=== PATIENT | male | born 1955 | race Caucasian/White ===

== ENCOUNTER → 2020-05-07 06:47 | Outpatient (CLI) | payer OTHER, SELFPAY ==
[2020-05-07 07:26] LABS: BUN Creatinine Ratio 16.9 (6-22); Blood Urea Nitrogen 15 mg/dL (9-20); Calcium 9.5 mg/dL (8.4-10.2); Carbon Dioxide 32 mmol/L (22-32); Chloride 103 mmol/L (98-107); Estimated Glomerular Filt Rate > 60.0 mL/min (>60); Glucose 99 mg/dL (80-110); HEMOLYSIS < 15 (0-50); Potassium 4.4 mmol/L (3.4-5.1); Sodium 139 mmol/L (137-145)
--- NOTE | 2020-05-07 08:52 | DI.CT.S_ITS ---
PROCEDURE: CT ABDOMEN PELVIS W CON INDICATIONS: ABDOMINAL PAIN, RIGHT UPPER QUADRANT TECHNIQUE: After the administration of oral and intravenous contrast, 5 mm thick sections acquired from the diaphragms to the symphysis. 5 mm thick coronal and sagittal reformats were performed. For radiation dose reduction, the following was used: automated exposure control, adjustment of mA and/or kV according to patient size. COMPARISON: None. FINDINGS: Image quality: Excellent. ABDOMEN: Lung bases: Lung bases are clear. Heart size is normal. Small hiatal hernia. Solid organs: Liver is normal in size. A few well-circumscribed hepatic hypodensities which have the appearance of benign cyst or hemangioma. The subtle area of contrast enhancement in the right posterior dome of the liver is most likely a perfusion abnormality. Gallbladder is not significantly distended. No calcified gallstones. No pericholecystic fluid demonstrated. Biliary system is non-dilated. Pancreas enhances normally. Spleen is normal in size and enhancement. No adrenal nodules. Kidneys are normal in size and enhancement, without hydronephrosis. Small simple cyst in the mid left kidney. Punctate nonobstructing left kidney stone, (4/34). Peritoneum and bowel: Stomach, small bowel, and colon loops are normal in caliber and wall thickness. No free fluid or air. The appendix is partially visualized and is normal in caliber. A few colonic diverticuli. Prominent stool in the colon. Nodes and vessels: No retroperitoneal or mesenteric adenopathy. Aorta and inferior vena cava are normal in caliber. Miscellaneous: No ventral hernias. PELVIS: Genitourinary: Bladder is unremarkable. Prostatomegaly. Miscellaneous: No inguinal hernias or adenopathy. Bones: No suspicious bony lesions. DDD most pronounced at L4-L5. No vertebral body compression fractures. IMPRESSION: 1. No acute inflammatory process identified. No free fluid. -if clinically indicated consider further evaluation of the right upper quadrant with ultrasound. 2. Small hiatal hernia. 3. Prostatomegaly. 4. Punctate nonobstructing left kidney stone. No hydronephrosis. 5. Prominent stool in the colon could be due to constipation. Dictated by: Emiliano Doe M.D. on 05/07/2020 at 9:30 Approved by: Emiliano Doe M.D. on 05/07/2020 at 9:37
== END ==
PROVIDERS: Referring Provider Family Medicine; Visit Provider Family Medicine
DX: R10.11 Right upper quadrant pain (principal); N40.0 Benign prostatic hyperplasia without lower urinary tract symptoms; K44.9 Diaphragmatic hernia without obstruction or gangrene; N20.0 Calculus of kidney
CPT/HCPCS: 36415; 74177; 80048; Q9967

== ENCOUNTER → 2023-02-25 08:06 | Outpatient (CLI) | payer OTHER, SELFPAY ==
--- NOTE | 2023-02-25 08:07 | DI.US.S_ITS ---
PROCEDURE: US CAROTID DOPPLER BI INDICATIONS: PLAQUE TECHNIQUE: Color and pulse Doppler interrogation was performed of both carotid systems, with image documentation and velocity measurements. COMPARISON: None. FINDINGS: Stenosis calculations are based on SRU (Society of Radiologists in Ultrasound) criteria. Right side: Brachial blood pressure: 112/72 mm Hg. Common carotid artery peak systolic velocity: 78.7 cm/sec. Internal carotid artery peak systolic velocity: 81.7 cm/sec. Internal carotid artery end diastolic velocity: 30.3 cm/sec. External carotid artery peak systolic velocity: 62.4 cm/sec. ICA/CCA peak systolic ratio: 1.04 Medina scale imaging description: Atheromatous plaque is present at the carotid bifurcation. Percent internal carotid artery stenosis: Less than 50% stenosis. Vertebral artery: Flow direction is antegrade. Left side: Brachial blood pressure: 116/76 mm Hg. Common carotid artery peak systolic velocity: 77.3 cm/sec. Internal carotid artery peak systolic velocity: 76.4 cm/sec. Internal carotid artery end diastolic velocity: 33.1 cm/sec. External carotid artery peak systolic velocity: 54.0 cm/sec. ICA/CCA peak systolic ratio: 1.0 . Medina scale imaging description: Atheromatous plaque is present at the carotid bifurcation. Percent internal carotid artery stenosis: Less than 50% stenosis. Vertebral artery: Flow direction is antegrade. IMPRESSION: Less than 50% stenosis of the bilateral internal carotid arteries. Dictated by: Sushila Mina M.D. on 02/25/2023 at 11:15 Approved by: Sushila Mina M.D. on 02/25/2023 at 11:17
[2023-02-25 09:35] LABS: Add Manual Diff / Slide Review NO; Basophils Absolute Auto 0 /uL (0-100); Basophils Percent Auto 0.8 % (0-2); Eosinophils Absolute Auto 100 /uL (0-450); Eosinophils Percent Auto 1.3 % (2-4); Hematocrit 44.5 % (41-53); Hemoglobin 15.1 g/dL (13.5-17.5); Lymphocytes Absolute Auto 1400 /uL (1100-4500); Lymphocytes Percent Auto 26.9 % (25-40); Mean Corpuscular Hemoglobin 31.7 PG (26-34); Mean Corpuscular Volume 93.1 fL (80-100); Monocytes Absolute Auto 600 /uL (0-900); Monocytes Percent Auto 10.7 % (3-14); Neutrophils Absolute Auto 3200 /uL (1500-7000); Neutrophils Percent Auto 60.3 % (50-75); Platelet Count 191 X10^3/uL (150-400); Red Blood Cell Count 4.78 X10^6/uL (4.5-5.9); Red Cell Distribution Width 13.1 % (11.6-14.8); White Blood Cell Count 5.4 X10^3/uL (4.5-11.0)
[2023-02-25 09:43] LABS: Appearance Urine UA CLEAR; Bilirubin Urine UA NEGATIVE (NEGATIVE); Color Urine UA YELLOW; Glucose Urine UA NEGATIVE (Negative); Ketones Urine UA NEGATIVE (NEGATIVE); Leukocyte Esterase Urine UA NEGATIVE (NEGATIVE); Nitrite Urine UA NEGATIVE (Negative); Occult Blood Urine UA NEGATIVE (Negative); Protein Urine UA NEGATIVE (Negative); Specific Gravity Urine UA 1.015 (1.000-1.035)
[2023-02-25 09:57] LABS: Bacteria Urine Occasional (0-1); RBC Urine None Seen (0-5/HPF); Squamous Epithelial Cell Urine 0-1 /HPF (0-5/HPF); WBC Urine None Seen (0-5/HPF)
[2023-02-25 09:58] LABS: Culture Indicated Urine Cult Not Indicated
[2023-02-25 10:01] LABS: Alanine Aminotransferase 18 IU/L (<50); Albumin 4.1 g/dL (3.5-5.0); Albumin Globulin Ratio 1.3 (1.0-2.8); Alkaline Phosphatase 68 U/L (38-126); Aspartate Aminotransferase 22 IU/L (17-59); BUN Creatinine Ratio 19.7 (6-22); Bilirubin Total 0.9 mg/dL (0.2-1.3); Blood Urea Nitrogen 15 mg/dL (9-20); Calcium 9.1 mg/dL (8.4-10.2); Carbon Dioxide 30 mmol/L (22-32); Chloride 105 mmol/L (98-107); Cholesterol 189 mg/dL (140-199); Estimated Glomerular Filt Rate > 60 mL/min (>60); Globulin 3.1 g/dL (1.7-4.1); Glucose 86 mg/dL (80-110); HDL Cholesterol 58 mg/dL (40-60); LDL Cholesterol Calculated 111 mg/dL (<100); Potassium 4.2 mmol/L (3.4-5.1); Sodium 139 mmol/L (137-145); Total Protein 7.2 g/dL (6.3-8.2); Triglycerides 100 mg/dL (35-150)
[2023-02-25 10:13] LABS: HEMOLYSIS 17 (0-50); High Sensitivity CRP - Cardiac 1.5 mg/L (1.0-3.0)
[2023-02-25 10:17] LABS: Vitamin D 25 Hydroxy (D3) 31.9 ng/mL (30.0-100.0)
[2023-02-25 10:30] LABS: TSH w/ Reflex to FT4 3.07 uIU/mL (0.47-4.68)
== END ==
PROVIDERS: PCP Pediatrics; Referring Provider Pediatrics; Visit Provider Pediatrics
DX: I65.23 Occlusion and stenosis of bilateral carotid arteries (principal); Z11.59 Encounter for screening for other viral diseases; Z12.5 Encounter for screening for malignant neoplasm of prostate; E78.00 Pure hypercholesterolemia, unspecified; L64.9 Androgenic alopecia, unspecified; E55.9 Vitamin D deficiency, unspecified; R68.89 Other general symptoms and signs; L82.1 Other seborrheic keratosis; L57.0 Actinic keratosis; Z80.42 Family history of malignant neoplasm of prostate
CPT/HCPCS: 36415; 80053; 80061; 81001; 82306; 84443; 85025; 86140; 93880; G0103

== ENCOUNTER 2023-05-25 13:06 | Day surgery (SDC) | payer OTHER, SELFPAY ==
--- NOTE | 2023-05-25 | PATH_ITS ---
[facility] Accession Number: [id number] No. of containers..02 Tissue . 01 Material submitted: . PART A: rectum - RECTAL POLYP PART B: colon - TRANSVERSE COLON POLYP . 01 Diagnosis: A. COLON, RECTUM, POLYP BIOPSY: - TUBULOVILLOUS ADENOMA, WITH FOCAL HIGH-GRADE DYSPLASIA (SEE COMMENT). - NEGATIVE FOR INVASIVE CARCINOMA. -- B. COLON, TRANSVERSE, POLYP BIOPSY: - VEGETABLE MATERIALS, NO COLONIC MUCOSA IDENTIFIED DESPITE MULTIPLE LEVELS ASSESSMENT. -- - COMMENT FOR PART A: There is focal high-grade dysplasia identified at the polyp head (Focal increased gland complexity and increased nuclear atypia including loss of nuclear polarity). No invasive malignancy is seen. Due to tissue orientation, evaluation of the presence or absence of high-grade dysplasia at the margin is not possible in this sample. . TXN 06/01/2023 1550 Local . 01 Electronically signed: . Sriram Lovell MD, Pathologist NPI- [id number] . 01 Gross description: . Part A: RECTAL POLYP: Received in formalin is 1 fragment(s) of lerner, soft tissue measuring 0.8 x 0.6 x 0.5 cm which is bisected and submitted entirely in 1 cassette(s) Part B: TRANSVERSE COLON POLYP: Received in formalin is multiple fragment(s) of lerner, soft tissue measuring 0.5 x 0.3 x 0.1 cm in aggregate submitted entirely in 1 cassette(s) /AAY 05/27/2023 0058 Local . 01 Pathologist provided ICD-10: Z12.11 . 01 CPT . 973895, 384490 Specimen Comment: A courtesy copy of this report has been sent to [phone] Performed at: [address] [place] [address] [facility], [place], [place] [id number] MD Edmund Ryan MD Phone: [phone]
[2023-05-25 13:20] VITALS: BP 150/99; PULSE 72; RESP 16; TEMP 36.3; O2SAT 100; BMI 24.7
[2023-05-25] MEDS: LACTATED RINGERS 1,000 ML 150 ML IV (13:36)
--- NOTE | 2023-05-25 14:06 | PM.HP.1 ---
History of Present Illness History of Present Illness Date Patient Seen: 05/25/23 Time Patient Seen: 14:06 Chief complaint: Colonoscopy Narrative: 68-year-old man here for screening colonoscopy. Last colonoscopy 11 years ago normal. No family history of intestinal malignancy. No abdominal concerns today including pain, unintentional weight loss, blood per rectum. [facility] Medical History Sleep apnea (~2020) Headache (~1979) Fracture (~1977) Chronic back pain Mumps Measles Tinnitus (~1999) Hearing loss (~2017) Need for hepatitis C screening test Abnormality on screening test Vitamin D deficiency Hypercholesterolemia Male pattern baldness Actinic keratosis Seborrheic keratosis Family history of prostate cancer No active medical problems Surgical History Anesthesia History of rhinoplasty (~2009) History of nephrolithotomy with removal of calculi (~2008) Family History Father Cancer Mother Hypertension Smoker Social History household members: spouse Smoking Status: Never smoker alcohol intake: current Meds Home Medications and Allergies Home Medications Medication Instructions Recorded Confirmed Type sodium,potassium,mag sulfates 17.5 See Rx Instructions PO .COMPLEX 04/16/23 05/25/23 Rx gram-3.13 gram-1.6 gram oral soln #354 mL (Suprep Bowel Prep Kit) Allergies Allergy/AdvReac Type Severity Reaction Status Date / Time No Known Drug Allergies Allergy Verified 02/11/23 13:11 Exam Vital Signs (past 8 hours): - 05/25/23 13:20 Temperature 97.3 F L Pulse Rate 72 Respiratory Rate 16 Blood Pressure 150/99 H Pulse Oximetry 100 Oxygen Delivery Method Room Air Oxygen Delivery Method Room Air Narrative Exam Narrative: General adult man alert oriented no acute distress Chest nonlabored respiration Extremities warm well perfused Assessment & Plan Assessment & Plan narrative: The patient requires colorectal screening and colonoscopy is recommended. Technical details were discussed. Risks, benefits, alternatives explained. Risks including but not limited to myocardial infarction, aspiration, bleeding, pain, missed lesion, incomplete examination, need for further radiographic studies, colonic perforation, and need for major abdominal surgery were discussed. All questions were answered to their satisfaction, and they are in agreement with this plan.
[2023-05-25 14:41] VITALS: BP 109/70; PULSE 69; RESP 12; TEMP 36.8; O2SAT 97
--- NOTE | 2023-05-25 14:44 | P.OP.COLON_ITS ---
Operative Date/Time/Diagnoses Date of procedure: 05/25/23 Time of procedure: 14:45 Pre-op diagnosis: Colorectal screening Post-op diagnosis: other (Colonic polyps x2) Procedure & Clinicians Study performed: Colonoscopy polypectomy Same procedure as scheduled: Yes Indications: Colorectal screening Surgeon: Jake Hale Procedure Notes Procedure in detail: The history and physical was performed/updated and the patient is ASA class is 2. The procedure was discussed in detail with the patient. Potential risks complications including infection, bleeding, missed diagnosis, perforation, need for surgery, and were explained. Their questions were answered and informed consent was obtained. Patient was brought to the procedure room and placed standard monitoring equipment. The patient's vital signs were monitored continuously throughout the entire procedure. Prior to starting time-out was performed. The patient was placed in the left lateral recumbent position. Procedural sedation was administered by anesthesia. Examination began with a thorough inspection of the perianal area there was no evidence of fissures, fistulae, external hemorrhoids or cutaneous malignancy. The colonoscopy scope was then placed into the anal canal and was advanced to the cecum, which was identified by the ileocecal valve, the appendiceal orifice and the confluence of the taenia. The scope was then slowly withdrawn examining colon thoroughly in all directions, irrigating it of any residual stool. The scope was retroflexed within the rectum The patient tolerated the procedure well. They will be discharged once criteria are met. The prep was of fair quality. The withdrawl time was 12 minutes. FINDINGS * Transverse colon 5 mm polyp removed in entirety with cold snare 100 cm from verge * Rectum 8 mm polyp removed in its entirety with cold snare. Specimen(s): other Impression: Colonic polyps x2 Post-procedure Plan for aftercare: Follow-up is dependent on pathology findings Disposition: same day surgery
[2023-05-25 14:45] VITALS: BP 106/68; PULSE 66; RESP 13; TEMP 36.4; O2SAT 98
[2023-05-25 14:52] VITALS: BP 106/76; PULSE 65; RESP 16; TEMP 36.6; O2SAT 99
== END 2023-05-25 15:05 | disposition home or self-care (01) ==
PROVIDERS: PCP Pediatrics; Referring Provider Surgery; Visit Provider Surgery
PROC: 0DJD8ZZ Inspection of Lower Intestinal Tract, Via Natural or Artificial Opening Endoscopic (ICD-10-PCS; CPT 45378; principal; 2023-05-25 14:15)
DX: Z12.11 Encounter for screening for malignant neoplasm of colon (principal); D12.8 Benign neoplasm of rectum
CPT/HCPCS: 45385; J2704

== ENCOUNTER 2024-06-13 09:22 | Day surgery (SDC) | payer OTHER, SELFPAY ==
--- NOTE | 2024-06-13 | PATH_ITS ---
[facility] Accession Number: [id number] No. of containers..01 Tissue . 01 Material submitted: . colon - TRANSVERSE COLON . 01 Diagnosis: TRANSVERSE COLON: Tubular adenoma. [facility] 06/15/20241705 Local . 01 Electronically signed: . Edmund Ryan MD, Pathologist NPI- [id number] . 01 Gross description: . Received in formalin with two patient identifiers and transverse colon, is a single lerner soft tissue fragment 0.5 cm in greatest dimension. Submitted in cassette A1. ([id number]) /SHELLEY 06/15/20241705 Local . 01 Pathologist provided ICD-10: D12.3 . 01 CPT . 493504 Specimen Comment: A courtesy copy of this report has been sent to [phone] Performed at: [address] [id number] MD Edmund Ryan MD Phone: [phone]
[2024-06-13 09:37] VITALS: BP 120/74; PULSE 73; RESP 17; TEMP 36.4; O2SAT 95
--- NOTE | 2024-06-13 11:21 | PM.HP.1 ---
History of Present Illness History of Present Illness Date Patient Seen: 06/13/24 Time Patient Seen: 11:21 Chief complaint: Colonoscopy Narrative: 69-year-old man personal history of colonic polyps here for screening colonoscopy. Last colonoscopy 1 year ago there was polyp with focal spot of high-grade dysplasia which was removed and is here for recheck. [facility] Medical History Carotid artery stenosis Erectile dysfunction Encounter for initial annual wellness visit (AWV) in Medicare patient Sleep apnea (~2020) Headache (~1979) Fracture (~1977) Chronic back pain Mumps Measles Tinnitus (~1999) Hearing loss (~2017) Need for hepatitis C screening test Abnormality on screening test Vitamin D deficiency Hypercholesterolemia Male pattern baldness Actinic keratosis Seborrheic keratosis Family history of prostate cancer No active medical problems Surgical History Anesthesia History of rhinoplasty (~2009) History of nephrolithotomy with removal of calculi (~2008) Family History Father Cancer Mother Hypertension Smoker Social History household members: spouse Smoking Status: Never smoker alcohol intake: current Meds Home Medications and Allergies Home Medications Medication Instructions Recorded Confirmed Type tadalafil 20 mg tablet (Cialis) 20 mg PO DAILY PRN sexual activity 07/30/23 07/30/23 Rx #30 tabs sodium,potassium,mag sulfates 17.5 See Rx Instructions PO .COMPLEX 05/02/24 Rx gram-3.13 gram-1.6 gram oral soln #354 mL (Suprep Bowel Prep Kit) Allergies Allergy/AdvReac Type Severity Reaction Status Date / Time No Known Drug Allergies Allergy Verified 06/13/24 09:37 Exam Vital Signs (past 8 hours): - 06/13/24 09:37 Temperature 97.6 F Pulse Rate 73 Respiratory Rate 17 Blood Pressure 120/74 Pulse Oximetry 95 Oxygen Delivery Method Room Air Oxygen Delivery Method Room Air Narrative Exam Narrative: General adult man alert oriented no acute distress Chest nonlabored respiration Extremities warm well perfused Assessment & Plan Assessment and plan (1) Personal history of colonic polyps: Status: Acute Assessment & Plan narrative: The patient requires colorectal screening and colonoscopy is recommended. Technical details were discussed. Risks, benefits, alternatives explained. Risks including but not limited to myocardial infarction, aspiration, bleeding, pain, missed lesion, incomplete examination, need for further radiographic studies, intestinal injury, and need for major abdominal surgery were discussed. All questions were answered to their satisfaction, and they are in agreement with this plan. Time-Based Coding :: [TOTAL MINUTES] spent with patient and on the chart (including review of chart, obtaining history, exam, reviewing outside data, placing orders, documenting exam and treatment plan, and counseling patient) on [DATE].
[2024-06-13 11:42] VITALS: BP 105/73; PULSE 70; RESP 18; TEMP 36.6; O2SAT 97
--- NOTE | 2024-06-13 11:43 | P.OP.COLON_ITS ---
Operative Date/Time/Diagnoses Date of procedure: 06/13/24 Time of procedure: 11:43 Pre-op diagnosis: Colonic polyp with focal dysplasia Procedure & Clinicians Study performed: Colonoscopy and polypectomy Same procedure as scheduled: Yes Indications: 69-year-old man colonoscopy last year demonstrated a polyp within the rectum found to have focal high-grade dysplasia. He is here for follow up. Surgeon: Jake Hale Procedure Notes Procedure in detail: The history and physical was performed/updated and the patient is ASA class is 2. The procedure was discussed in detail with the patient. Potential risks complications including infection, bleeding, missed diagnosis, perforation, need for surgery, and were explained. Their questions were answered and informed consent was obtained. Patient was brought to the procedure room and placed standard monitoring equipment. The patient's vital signs were monitored continuously throughout the entire procedure. Prior to starting time-out was performed. The patient was placed in the left lateral recumbent position. Procedural sedation was administered by anesthesia. Examination began with a thorough inspection of the perianal area there was no evidence of fissures, fistulae, external hemorrhoids or cutaneous malignancy. The colonoscopy scope was then placed into the anal canal and was advanced to the cecum, which was identified by the ileocecal valve, the appendiceal orifice and the confluence of the taenia. The scope was then slowly withdrawn examining colon thoroughly in all directions, irrigating it of any residual stool. The scope was retroflexed within the rectum The patient tolerated the procedure well. They will be discharged once criteria are met. The prep was of good/excellent quality. The withdrawl time was 7 minutes. FINDINGS * Transverse colon 3 mm polyp removed with biopsy forceps. * No findings of recurrent polyp formation within the rectum Specimen(s): other (Transverse colon polyp) Impression: Colonic polyp x1 Post-procedure Plan for aftercare: Follow up dependent on pathology findings likely 5 years Disposition: same day surgery
[2024-06-13 11:47] VITALS: BP 105/66; PULSE 68; RESP 14; O2SAT 98
[2024-06-13 11:52] VITALS: BP 105/65; PULSE 65; RESP 15; O2SAT 98
[2024-06-13 11:59] VITALS: BP 110/77; PULSE 60; RESP 16; TEMP 36.6; O2SAT 99
== END 2024-06-13 12:30 | disposition home or self-care (01) ==
PROVIDERS: PCP Family Medicine; Referring Provider Surgery; Visit Provider Surgery
PROC: 0DJD8ZZ Inspection of Lower Intestinal Tract, Via Natural or Artificial Opening Endoscopic (ICD-10-PCS; CPT 45378; principal; 2024-06-13 10:45)
DX: Z12.11 Encounter for screening for malignant neoplasm of colon (principal); Z86.0100 Personal history of colon polyps, unspecified; D12.3 Benign neoplasm of transverse colon
CPT/HCPCS: 45380; J2704

== ENCOUNTER → 2024-09-06 11:12 | Outpatient (CLI) | payer MEDICARE, OTHER, SELFPAY | PROVIDERS: PCP Family Medicine; Visit Provider Registered Nurse | DX: R30.0 Dysuria (principal) | CPT/HCPCS: 87086 ==

== ENCOUNTER → 2025-01-09 10:28 | Outpatient (CLI) | payer MEDICARE, OTHER, SELFPAY ==
[2025-01-09 11:29] LABS: Cholesterol 182 mg/dL (140-199); HDL Cholesterol 53 mg/dL (40-60); LDL Cholesterol Calculated 105 mg/dL (<100); Triglycerides 120 mg/dL (35-150)
[2025-01-09 11:58] LABS: Prostate Specific Antigen Scrn 1.78 ng/mL (0.1-4.0)
== END ==
PROVIDERS: PCP Family Medicine; Referring Provider Family Medicine; Visit Provider Family Medicine
DX: E78.00 Pure hypercholesterolemia, unspecified (principal); Z12.5 Encounter for screening for malignant neoplasm of prostate; Z00.00 Encounter for general adult medical examination without abnormal findings
CPT/HCPCS: 36415; 80061; G0103